=== PATIENT | female | born 1960 | race Caucasian/White ===

== ENCOUNTER 2016-07-02 07:09 | Day surgery (SDC) | payer OTHER ==
[2016-06-23 13:59] VITALS: BMI 22.4
[2016-07-02] MEDS ORDERED: PROPOFOL 20 ML ONE (11:07)
[2016-07-02] MEDS ORDERED: BUPIVACAINE HCL/EPINEPHRINE/PF 30 ML VIAL IJ ONE (11:15)
[2016-07-02] MEDS ORDERED: MIDAZOLAM HCL 2 MG/2 ML SINGLE DOSE VIAL ONE ×2 (11:19→11:37)
[2016-07-02] MEDS ORDERED: ceFAZolin SODIUM 1 GM VIAL ONE (11:42)
--- NOTE | 2016-07-02 12:12 | DS ---
Physical Examination Vital Signs: Vital Signs Temperature 97.7 F 07/02/16 09:26 Pulse Rate 68 07/02/16 09:26 Respiratory Rate 18 07/02/16 09:26 Blood Pressure 146/68 07/02/16 09:26 O2 Sat by Pulse Oximetry (%) 99 07/02/16 09:26 Discharge Summary Reason For Visit: MEDIAL MENISCAL TEAR LEFT KNEE Condition: Good - Instructions Diet, Activity, Other Instructions: Post Operative Instructions: Knee Arthroscopy Dr Fritz An 1. Pain following an arthroscopy is variable. Some patients will have more pain than others. You have been provided with a prescription for medication that contains a narcotic. You are not allowed to drive while on this medication. You should NOT take Tylenol (Acetaminophen) when taking the pain medication ( it will result in an overdose). Feel free to take medications such as Ibuprofen or Naprosyn in addition to the pain medicine if you do not have any problems with the NSAID class of medications. 2. You are allowed to remove the bandages and shower in 24 hours unless directed otherwise. You are not allowed to bathe or go swimming until the sutures are removed. Put band-aids on the sutures after your shower and do not put any creams or lotions over the incisions. 3. You are allowed to put all your weight on the leg and bend your knee, unless directed otherwise. 4. Apply ice to the knee for 15 min every hour or so. You may continue this for as many days as you like. 5. Please call the office to schedule a visit to have your sutures removed. 6. If for any reason you believe you may have an infection or are concerned, please feel free to call me. I can be reached through our office number 24 hours a day. 7. Please call our office with any questions; we will review the surgical findings during your post operative visit. Disposition: HOME - Home Medications Comprehensive Discharge Medication List: Ambulatory Orders Albuterol Sulfate Inhaler - [Ventolin Hfa Inhaler -] 1 puff IH BID 06/23/16 Aspirin/Calcium Carbonate/Mag [Aspirin Buffered 325 mg Tab] 325 mg PO HS Atorvastatin Ca [Lipitor] 80 mg PO DAILY 06/23/16 Duloxetine HCl [Cymbalta] 60 mg PO DAILY 06/23/16 Gabapentin 900 mg PO BID 06/23/16 Hydrocodone/Acetaminophen [Lorcet Plus 7.5-325 mg Tablet] 1 each PO Q8H PRN 05/07 Lubiprostone [Amitiza] 24 mcg PO BID 06/23/16 Nifedipine [Procardia Xl] 60 mg PO HS 06/23/16 Pantoprazole Sodium [Protonix] 40 mg PO DAILY 06/23/16 Valsartan [Diovan] 80 mg PO HS 06/23/16 Venlafaxine HCl ER [Effexor Xr -] 75 mg PO Q2D 06/23/16
--- NOTE | 2016-07-02 12:12 | OP ---
Operative Note - Note: Operative Date: 07/02/16 Pre-Operative Diagnosis: Left knee MMT/LMT Operation: LKA, PMM, PLM Post-Operative Diagnosis: Same as Pre-op Surgeon: Fritz An Anesthesia: Local Operative Report Dictated: Yes
[2016-07-02 12:22] VITALS: TEMP 98.2
[2016-07-02 12:46] VITALS: BP 146/73; PULSE 65
[2016-07-02] MEDS ORDERED: oxyCODONE HCL 5 MG TABLET PO PRN ×2 (14:29)
[2016-07-02] MEDS ORDERED: ONDANSETRON 4 MG/2 ML VIAL IVPUSH PRN (14:29)
[2016-07-02] MEDS ORDERED: LACTATED RINGERS SOLUTION 1,000 ML IV SCH (14:30)
--- NOTE | 2016-07-06 14:32 | PATH ---
Surgical Pathology Report Patient Name: SHAILA TOWNSEND [facility]. Rec. #: [id number] /Age/Gender: 1960 (Age: 55) / F Account: [id number] Location: [facility] Taken: 07/02/2016 Received: 07/02/2016 Reported: 07/06/2016 Physicians: Fritz An M.D. Specimen(s) Received SHAVINGS LEFT KNEE Clinical History Left knee meniscal tear Final Diagnosis KNEE, LEFT, ARTHROSCOPIC SHAVING: FIBROCARTILAGE WITH MYXOID DEGENERATIVE CHANGES, ALONG WITH PORTIONS OF SYNOVIUM AND HYALINE CARTILAGE. CRYSTALLINE MATERIAL MORPHOLOGICALLY CONSISTENT WITH PSEUDOGOUT (CPPD) PRESENT. Electronically Signed Lm Harrington M.D. Gross Description Received in formalin labeled "shavings left knee," is a 2.5 x 1.5 x 0.2 cm aggregate of ashley-yellow soft tissue fragments. The formalin is filtered and the specimen is entirely submitted in one cassette. 07/05/201607/05/2016
== END 2016-07-02 12:50 | disposition home or self-care (01) ==
LOC: FASU 07:09
PROVIDERS: ATTEND Orthopaedic Surgery
PROC: 0SBD4ZZ Excision of Left Knee Joint, Percutaneous Endoscopic Approach (ICD-10-PCS; 2016-07-02)
PROC: 0SBD4ZZ Excision of Left Knee Joint, Percutaneous Endoscopic Approach (ICD-10-PCS; 2016-07-02)
PROC: 0SBD4ZZ Excision of Left Knee Joint, Percutaneous Endoscopic Approach (ICD-10-PCS; 2016-07-02)
PROC: 0SBD4ZZ Excision of Left Knee Joint, Percutaneous Endoscopic Approach (ICD-10-PCS; principal; 2016-07-02 11:49)
DX: S83.282A Other tear of lateral meniscus, current injury, left knee, initial encounter (principal); S83.242A Other tear of medial meniscus, current injury, left knee, initial encounter; M11.262 Other chondrocalcinosis, left knee; M17.12 Unilateral primary osteoarthritis, left knee
CPT/HCPCS: 88304-TC

== ENCOUNTER 2018-07-28 05:32 | Day surgery (SDC) | payer OTHER ==
[2018-07-26 16:36] VITALS: BMI 22.6
[2018-07-28] MEDS ORDERED: ROPIVACAINE HCL 0.5% 30ML VIAL ONE (06:42)
[2018-07-28] MEDS ORDERED: MIDAZOLAM HCL 2 MG/2 ML SINGLE DOSE VIAL ONE ×2 (06:42→07:30)
[2018-07-28] MEDS ORDERED: BUPIVACAINE HCL/EPINEPHRINE/PF 30 ML VIAL IJ ONE (07:10)
[2018-07-28] MEDS ORDERED: EPINEPHrine 1:1,000 1 MG/1 ML - 30ML VIAL (INJECTION) ONE (07:10)
[2018-07-28] MEDS ORDERED: PROPOFOL 20 ML ONE (07:30)
[2018-07-28] MEDS ORDERED: SUCCINYLCHOLINE CHLORIDE 200 MG/10 ML VIAL ONE (07:30)
--- NOTE | 2018-07-28 07:33 | HP ---
History & Physical Update - History History: No Change - Physical Physical: No Change - Assessment Assessment: No Change - Plan Plan: No Change
[2018-07-28] MEDS ORDERED: ceFAZolin SODIUM 1 GM VIAL ONE (08:25)
[2018-07-28] MEDS ORDERED: ONDANSETRON 4 MG/2 ML VIAL ONE (08:30)
[2018-07-28] MEDS ORDERED: DEXAMETHASONE SOD PHOSPHATE 4 MG/1 ML VIAL ONE (08:30)
[2018-07-28] MEDS ORDERED: TRANEXAMIC ACID 1000 MG/10 ML VIAL ONE (08:59)
[2018-07-28] MEDS ORDERED: oxyCODONE HCL 5 MG TABLET PO PRN ×3 (10:10→10:54)
[2018-07-28] MEDS ORDERED: oxyCODONE HCL 10 MG SUSTAINED ACTING TABLET PO ONE (10:10)
--- NOTE | 2018-07-28 10:14 | DS ---
Physical Examination Vital Signs: Vital Signs Temperature 97.7 F 07/28/18 06:43 Pulse Rate 56 L 07/28/18 06:43 Respiratory Rate 18 07/28/18 06:43 Blood Pressure 117/69 07/28/18 06:43 O2 Sat by Pulse Oximetry (%) 96 07/28/18 06:43 Labs: CBC, BMP 07/28/18 06:15 Discharge Summary Reason For Visit: LEFT SHOULDER ACUTE ROTATOR CUFF TEAR Condition: Good - Instructions Diet, Activity, Other Instructions: Post Operative Instructions: Shoulder Arthroscopy Dr Fritz An 1. Pain following a Shoulder Arthroscopy is variable and can be significant. Some patients will have more pain than others. You have been provided with a prescription for medication that contains a narcotic. You are not allowed to drive while on this medication. You should take Tylenol (Acetaminophen) when taking the pain medication ( it will result in an overdose). Feel free to take medications such as Ibuprofen or Naprosyn in addition to the pain medicine if you do not have any problems with the NSAID class of medications. 2. Apply ice to the shoulder for 15 minutes every hour. You may continue this for as many days as necessary. 3. You may find sleeping on an incline (reclining chair) to be more comfortable for the first few days. 4. You must remain in your sling at all times except when showering. The only exception to this is to allow you to stretch your elbow a few times a day to prevent your hand and forearm from swelling. 5. You are not to use your arm to reach for anything, lift anything or carry anything until instructed otherwise. 6. You may remove the bandages in 48 hours. You may shower at that point. 7. Place band-aids on the incisions after your shower.Do not put any creams or lotions on the incision until after the sutures are removed. 8. Please call the office to schedule a visit to have your sutures removed. 9. If for any reason you believe you may have an infection or are concerned, please feel free to call me. I can be reached through our office number 24 hours a day. 10. Please call our office with any questions; we will review the surgical findings during your post-operative visit. Disposition: HOME - Home Medications Comprehensive Discharge Medication List: Ambulatory Orders Albuterol Sulfate Inhaler - [Ventolin Hfa Inhaler -] 1 puff IH BID 06/23/16 Atorvastatin Ca [Lipitor] 80 mg PO HS 06/23/16 Duloxetine HCl [Cymbalta] 60 mg PO HS 06/23/16 Gabapentin 1,800 mg PO BID 06/23/16 Lubiprostone [Amitiza] 24 mcg PO BID 06/23/16 Pantoprazole Sodium [Protonix] 40 mg PO Q12H 06/23/16 Aspirin [ASA -] 325 mg PO DAILY 07/26/18 Bupropion HCl [Wellbutrin Sr] 150 mg PO BID 07/26/18 Carvedilol [Coreg -] 12.5 mg PO BID 07/26/18 Fluticasone/Umeclidin/Vilanter [Trelegy Ellipta 100-62.5-25] 1 each IH DAILY 07/09 Hydralazine HCl 100 mg PO TID 07/26/18 Loratadine 10 mg PO DAILY 07/26/18 Nifedipine [Procardia Xl] 90 mg PO DAILY 07/26/18 Oxycodone HCl/Acetaminophen [Oxycodon-Acetaminophen 7.5-325] 1 each PO TID PRN 07/26/18 Valsartan [Diovan] 160 mg PO DAILY 07/26/18
--- NOTE | 2018-07-28 10:14 | OP ---
Operative Note - Note: Operative Date: 07/28/18 Pre-Operative Diagnosis: Left massive, acute RCT, with greater tuberosity avulsion fracture Operation: LSA, massive RCR Post-Operative Diagnosis: Same as Pre-op Surgeon: Fritz An Beef Pluck Trimmer: Ksenia Alston Anesthesiologist/EMS EDUCATOR: Horace Ervin Anesthesia: General Operative Report Dictated: Yes
[2018-07-28] MEDS ORDERED: PROMETHAZINE HCL 25 MG/1 ML VIAL IVPUSH PRN (10:54)
[2018-07-28] MEDS ORDERED: ONDANSETRON 4 MG/2 ML VIAL IVPUSH PRN (10:54)
[2018-07-28 11:41] VITALS: TEMP 97.7
[2018-07-28 12:19] VITALS: BP 116/57; PULSE 59
--- NOTE | 2018-07-28 12:50 | SURG ---
Surgery Derrick Operator Note Derrick Operator: Ksenia Alston PA-C Date of Service: 07/28/18 Diagnosis: Left massive, acute RCT, with greater tuberosity avulsion fracture Procedure: LSA, massive RCR I was present for the entirety of the operative procedure. For further detail, please refer to operative report. Visit type - Case Type Case Type: Scheduled - Emergency Emergency Visit: No - New patient This patient is new to me today: Yes Date on this admission: 07/28/18
--- NOTE | 2018-07-31 09:07 | PATH ---
Surgical Pathology Report Patient Name: SHAILA TOWNSEND Med. Rec. #: [id number] /Age/Gender: 1960 (Age: 57) / F Account: [id number] Location: [facility] Taken: 07/28/2018 Received: 07/28/2018 Reported: 07/31/2018 Physicians: Fritz An M.D. Specimen(s) Received SHAVINGS LEFT SHOULDER Clinical History Left shoulder rotator cuff tear Final Diagnosis LEFT SHOULDER, ARTHROSCOPIC SHAVING: PORTIONS OF SYNOVIUM AND BONE CONSISTENT WITH ARTHROSCOPIC SHAVINGS. Electronically Signed Lm Harrington M.D. Gross Description Received in formalin, labeled "shavings left shoulder," is a 2.7 x 2.5 x 0.3 cm. aggregate of ashley-yellow soft tissue fragments. A contact representative portion is submitted in one cassette. /07/28/2018 saudi07/28/2018
== END 2018-07-28 12:19 | disposition home or self-care (01) ==
LOC: FASU 05:32
PROVIDERS: ATTEND Orthopaedic Surgery
PROC: 0RBK4ZZ Excision of Left Shoulder Joint, Percutaneous Endoscopic Approach (ICD-10-PCS; 2018-07-28)
PROC: 0RHK44Z Insertion of Internal Fixation Device into Left Shoulder Joint, Percutaneous Endoscopic Approach (ICD-10-PCS; 2018-07-28)
PROC: 0LQ24ZZ Repair Left Shoulder Tendon, Percutaneous Endoscopic Approach (ICD-10-PCS; principal; 2018-07-28 08:45)
PROC: 0RHK44Z Insertion of Internal Fixation Device into Left Shoulder Joint, Percutaneous Endoscopic Approach (ICD-10-PCS; 2018-07-28 08:45)
DX: S42.252A Displaced fracture of greater tuberosity of left humerus, initial encounter for closed fracture (principal); S42.012A Anterior displaced fracture of sternal end of left clavicle, initial encounter for closed fracture; X58.XXXA Exposure to other specified factors, initial encounter; Y93.9 Activity, unspecified; Y92.9 Unspecified place or not applicable
CPT/HCPCS: 36415; 84132; 88304-TC; 94760